=== PATIENT | female | born 1990 | race Caucasian/White ===

== ENCOUNTER → 2020-10-01 | Outpatient (CLI) | payer OTHER ==
[2020-10-01 16:15] VITALS: BP 114/77; PULSE 91; RESP 20; TEMP 98.3; BMI 39.0
--- NOTE | 2020-10-01 17:04 | P.HPBAR ---
Bariatric H&P - History & Physicial H&P Date: 10/01/20 History & Physicial: Visit/CC: initial visit Patient initial contact: Initial weight: Initial weight in pounds: Height: 5 ft 7.5 in Initial BMI: Last weight: Current weight: 114.759 kg Current weight in pounds: 253.00 Current BMI: 39.0 [place] body weight (based on NIH guidelines): 62.369 kg Excess body weight loss: The patient is a 30 year-old F who presents for Bariatric Assessment. DATE OF SERVICE: 10/01/2020 REASON FOR CONSULTATION: Initial bariatric evaluation. HISTORY OF PRESENT ILLNESS: Alexia Lopez is a 30-year-old female who comes with lifelong morbid obesity. She is looking into the gastric bypass. She has tried diet pills, diet drink mix, cutting out red meat, exercise, riding her bike for weight loss. Her highest weight is 300 pounds. She lost most weight by cutting out red meat. Her mother had trouble with weight loss. She is not aware of Crohns or colitis. Lupus runs in her family. She has acid reflux. She denies food gets stuck. She still has her gallbladder. She had 7 years ago. She cannot tolerate tomatoes or spicy foods. Her grandmother had her gallbladder removed and great grandmother. She needs medical supervised weight loss for 1 year. She tried other medications for weight loss. She denies blood clots in the family. She reports easy bruising. She reports alcohol use. She does not smoke and has stopped in the past. She has lower back pain, left hip, and knees for osteoarthritis. She denies ankle pain. She has neuropathy. She has selected the bypass image. She has a 7 year old child. She has diabetes and sleep apnea. She is pending psychological assessment. At height of 5 feet 7.5 inches, her ideal body weight is 158 pounds. Her highest weight is 300 pounds, BMI 46.4. She comes in 252 pounds. Her body mass index is 39.0. She is 94 pounds overweight. PAST MEDICAL HISTORY: 1. Morbid obesity due to excess calories 2. Body mass index of 46.4, initial 3. Hyperlipidemia 4. Osteoarthritis of the back 5. Depressive disorder 6. Gastroesophageal reflux disease 7. Diabetes type II with neuropathy 8. Migraines 9. Anxiety 10. Osteoarthritis of the left hip 11. Osteoarthritis of the knees 12. Obstructive sleep apnea PAST SURGICAL HISTORY: 1. section HOME MEDICATIONS: Home Medications Medication Instructions Recorded Confirmed Atorvastatin [Lipitor] 40 mg PO DAILY 10/01/20 10/01/20 Celecoxib [CeleBREX] 100 mg PO DAILY PRN 10/01/20 10/01/20 Cholecalciferol (Vitamin D3) 125 mcg PO BID 10/01/20 10/01/20 [Vitamin D3 (5000 Iu)] Desvenlafaxine [Desvenlafaxine ER] 50 mg PO DAILY 10/01/20 10/01/20 Ibuprofen [Advil Migraine] 200 mg PO DIRECTED PRN 10/01/20 10/01/20 Pantoprazole Sodium 40 mg PO DAILY 10/01/20 10/01/20 Pregabalin [Lyrica] 50 mg PO BID 10/01/20 10/01/20 Rizatriptan Benzoate [Maxalt] 10 mg PO DAILY PRN 10/01/20 10/01/20 clonazePAM [KlonoPIN] 0.5 mg PO DAILY 10/01/20 10/01/20 metFORMIN HCL [Glucophage] 1,000 mg PO BID 10/01/20 10/01/20 rOPINIRole HCL [Requip] 0.75 mg PO HS 10/01/20 10/01/20 ALLERGIES: Allergies Allergy/AdvReac Type Severity Reaction Status Date / Time No Known Allergies Allergy Verified 10/01/20 16:49 SOCIAL HISTORY: Past tobacco use. She drinks alcohol. FAMILY HISTORY: No family history of ulcerative colitis disease or Crohn's disease. Family history of morbid obesity. Lupus runs in the family. No reports of stomach or esophageal cancer. Her grandmother had her gallbladder removed and great grandmother. She denies blood clots in the family. She has a 7 year old child. REVIEW OF ORGAN SYSTEMS: CONSTITUTIONAL: HEENT: Denies any active troubles with vision or hearing. Has troubles with swallowing. ENDOCRINE: Has diabetes type II. No hypothyroidism. CARDIOVASCULAR: No past reports of palpitations or heart attacks or chest pain. Has hyperlipidemia. Has hypertensive disease. RESPIRATORY: Has daytime somnolence. Has sleep apnea. GASTROINTESTINAL: Denies any bright red blood per rectum. No diarrhea. No constipation. Has gastroesophageal reflux disease. GENITOURINARY: No recent blood in urine MUSCULOSKELETAL: Has lower back pain and joint pain. Has osteoarthritis of the knees. NEURO: No seizure disorders. Has neuropathy. Has migraines. PSYCH: Has depression. No suicidal ideation. Has anxiety. RHEUMATOLOGIC: No lupus. No rheumatoid arthritis. HEMATOLOGIC: Has abnormal bleeding or bruising. SKIN: No rash. No skin cancer. PHYSICAL EXAM: VITAL SIGNS: Height 5 foot 7.5 inches, weight 252 pounds. BMI 39.0 GENERAL: Well-developed in no acute distress. HEENT: No scleral icterus. Extraocular movements grossly intact. Hears conversational speech. No nasal drainage. NECK: Supple without lymphadenopathy. CHEST: Nonlabored respirations with equal bilateral excursions. CARDIOVASCULAR: Regular rate and regular rhythm. Distal 2+ pulses. ABDOMEN: Obese, soft, nontender, nondistended. MUSCULOSKELETAL: No clubbing, cyanosis. NEURO: No focal or lateralizing signs. Cranial nerves 2 through 12 grossly within normal limits. PSYCH: Appropriate affect. Alert and oriented to person, place and time. SKIN: Good skin turgor. Well perfused. ASSESSMENT: 1. Morbid obesity due to excess calories 2. Body mass index of 46.4, initial 3. Hyperlipidemia 4. Osteoarthritis of the back 5. Depressive disorder 6. Gastroesophageal reflux disease 7. Diabetes type II with neuropathy 8. Migraines 9. Anxiety 10. Osteoarthritis of the left hip 11. Osteoarthritis of the knees 12. Obstructive sleep apnea PLAN: 1. Surgical options including a band, gastric bypass, sleeve gastrectomy were described in detail. Alternatives such as gastric balloon including duodenal switch were described. She is looking into the gastric bypass. 2. Recommend urine nicotine and drug screen per insurance guideline. 3. Recommend a bariatric metabolic panel to evaluate for micro- including macronutrient deficiencies. 4. For history of daytime somnolence, recommend evaluation and treatment for sleep apnea. 5. Dietary surveillance and counseling was reviewed. Increased protein intake over 65 grams daily advised. 6. Will need cardiac risk assessment. 7. Recommend medical risk assessment. 8. Psych assessment per insurance guidelines. 9. Recommend upper endoscopy. 10. Recommend 12-lead EKG. 11. Will need [facility] calculated risk score. Thank you for this consultation. Past Medical History Past Medical History: Diabetes Mellitus, Hyperlipidemia, Sleep Apnea/CPAP/BIPAP History of Any Multi-Drug Resistant Organisms: None Reported Past Surgical History: Section Past Anesthesia/Blood Transfusion Reactions: No Reported Reaction Past Psychological History: Anxiety, Depression Smoking Status: Former smoker Past Alcohol Use History: None Reported Additional Past Alcohol Use History / Comment(s): pt states she quit 08/2020 Past Drug Use History: None Reported Surgical - Exam Vital Signs Temp Pulse Resp BP 98.3 F 91 20 114/77 10/01/20 15:57 10/01/20 15:57 10/01/20 15:57 10/01/20 15:57 Bariatric Checklist Checklist: Plan: Checklist: EGD: 1. Hiatal hernia: 2. H. Pylori: HgbA1c: Vitamin D: Smoking: Primary care physician referral: Dr. Zeb Pino ([place]) Psychiatry clearance: Cardiology clearance: Sleep study: Diet journal: VTE risk score: VTE risk level: Rehab needs at discharge:
== END ==
LOC: BARWHC3 13:55
PROVIDERS: ATTEND Surgery Plastic and Reconstructive Surgery
DX: E66.01 Morbid (severe) obesity due to excess calories (principal); E78.5 Hyperlipidemia, unspecified; M47.819 Spondylosis without myelopathy or radiculopathy, site unspecified; F32.9 Major depressive disorder, single episode, unspecified; K21.9 Gastro-esophageal reflux disease without esophagitis; E11.40 Type 2 diabetes mellitus with diabetic neuropathy, unspecified; G43.909 Migraine, unspecified, not intractable, without status migrainosus; F41.9 Anxiety disorder, unspecified; M16.12 Unilateral primary osteoarthritis, left hip; M17.0 Bilateral primary osteoarthritis of knee; G47.33 Obstructive sleep apnea (adult) (pediatric); Z68.39 Body mass index [BMI] 39.0-39.9, adult; Z79.84 Long term (current) use of oral hypoglycemic drugs; Z79.899 Other long term (current) drug therapy; Z87.891 Personal history of nicotine dependence
CPT/HCPCS: 99203; 99214